=== PATIENT | female | born 1995 | race Asian ===

== ENCOUNTER 2018-07-12 23:30 | Emergency (ER) | payer OTHER ==
[2018-07-12 23:36] VITALS: BP 142/77
--- NOTE | 2018-07-13 00:13 | EDPHY ---
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 She was administering insulin to a patient, the patient moved after she had injected the insulin and the needle stuck her in her right pointer finger. There was bleeding. She quickly washed the area. At this time she feels fine. She reports her immunizations are up-to-date including tetanus and hepatitis B. She states the patient does not have any known infectious diseases but does have a history of incarceration. She reports the source patient will be able to be tested for infectious diseases. - Personal History LMP (Females 10-55): 22-28 Days Ago Current Tetanus Diphtheria and Acellular Pertussis (TDAP): Yes - Medical/Surgical History Hx Asthma: No Hx Chronic Respiratory Disease: No Hx Diabetes: No Hx Cardiac Disease: No Hx Renal Disease: No Hx Cirrhosis: No Hx Alcoholism: No Hx HIV/AIDS: No Hx Splenectomy or Spleen Trauma: No Other PMH: DENIES - Social History Smoking Status: Never smoked - Physical Exam Exam: General Appearance: Alert and no distress. Eyes: Pupils equal and round no injection. Respiratory: Chest is non tender, lungs are clear to auscultation. Cardiac: regular rate and rhythm Gastrointestinal: Abdomen is soft and non tender, no masses, bowel sounds normal. Musculoskeletal: Neck is supple and non tender. Extremities have full range of motion and are non tender. Skin: No active bleeding from what appears to be a puncture wound to her right pointer finger. Constitutional: Initial Vital Signs Temperature (C) 36.7 C 07/12/18 23:34 Heart Rate 88 07/12/18 23:34 Respiratory Rate 16 07/12/18 23:34 Blood Pressure 142/77 H 07/12/18 23:34 O2 Sat (%) 97 07/12/18 23:34 O2 Delivery Mode Room Air Allergies/Adverse Reactions: No Known Allergies Allergy (Unverified 07/12/18 23:34) Home Medications: Medication Instructions Recorded NK [No Known Home Meds] 07/12/18 Medical Decision Making ED Course/Re-evaluation: Patient seen under the supervision of my secondary supervising physician Dr. Jake Lanier. Patient presents to the emergency department after sustaining a needle stick at work. She has no complaints. Her immunizations are up-to- date. There is no report of Infectious Disease in the source patient, but source does appear to have risk factors including history of incarceration. According to the patient the source patient will be able to be tested for infectious diseases. Baseline blood studies on patient are obtained. I have offered her prophylactic medication for HIV, she has declined. She will insure source patient is tested and understands if she needs to start post exposure prophylactic medication this needs to be started within 72 hr. Patient voiced understanding and agreement with plan. Differential Diagnosis: Included but not limited to needlestick, needle stick with infectious disease transmission - Data Points Laboratory Results: Laboratory Results 07/13/18 00:28 07/13/18 00:28 07/13/18 07/13/18 07/13/18 00:28 00:28 00:28 WBC 9.11 10^3/uL 10^3/uL (3.80-9.50) RBC 5.20 10^6/uL 10^6/uL (4.18-5.33) Hgb 15.0 g/dL g/dL (12.6-16.3) Hct 44.5 % % (38.0-47.0) MCV 85.6 fL fL (81.5-99.8) MCH 28.8 pg pg (27.9-34.1) MCHC 33.7 g/dL g/dL (32.4-36.7) RDW 12.6 % % (11.5-15.2) Plt Count 239 10^3/uL 10^3/uL (150-400) MPV 10.7 fL fL (8.7-11.7) Neut % (Auto) 61.0 % % (39.3-74.2) Lymph % (Auto) 32.2 % % (15.0-45.0) [place] % (Auto) 5.7 % % (4.5-13.0) Eos % (Auto) 0.4 % L % (0.6-7.6) Baso % (Auto) 0.4 % % (0.3-1.7) Nucleat RBC Rel Count 0.0 % % (0.0-0.2) Absolute Neuts (auto) 5.55 10^3/uL 10^3/uL (1.70-6.50) Absolute Lymphs (auto) 2.93 10^3/uL 10^3/uL (1.00-3.00) Absolute Monos (auto) 0.52 10^3/uL 10^3/uL (0.30-0.80) Absolute Eos (auto) 0.04 10^3/uL 10^3/uL (0.03-0.40) Absolute Basos (auto) 0.04 10^3/uL 10^3/uL (0.02-0.10) Absolute Nucleated RBC 0.00 10^3/uL 10^3/uL (0-0.01) Immature Gran % 0.3 % % (0.0-1.1) Immature Gran # 0.03 10^3/uL 10^3/uL (0.00-0.10) Sodium 140 mEq/L mEq/L (135-145) Potassium 3.8 mEq/L mEq/L (3.5-5.2) Chloride 107 mEq/L mEq/L (97-110) Carbon Dioxide 20 mEq/l L mEq/l (22-31) Anion Gap 13 mEq/L mEq/L (6-14) BUN 10 mg/dL mg/dL (7-23) Creatinine 0.7 mg/dL mg/dL (0.6-1.0) Estimated GFR > 60 Glucose 79 mg/dL mg/dL (70-100) Calcium 9.4 mg/dL mg/dL (8.5-10.4) Total Bilirubin 0.3 mg/dL mg/dL (0.1-1.4) Conjugated Bilirubin 0.1 mg/dL mg/dL (0.0-0.5) Unconjugated Bilirubin 0.2 mg/dL mg/dL (0.0-1.1) AST 35 IU/L IU/L (14-46) ALT 36 IU/L IU/L (9-52) Alkaline Phosphatase 59 IU/L IU/L (38-126) Total Protein 7.7 g/dL g/dL (6.3-8.2) Albumin 4.6 g/dL g/dL (3.5-5.0) Beta HCG, Qual NEGATIVE Hep Bs Antibody Pending Hepatitis C Antibody Pending HIV 1&2 Antibody Pending Departure - Departure Disposition: Home, Routine, Self-Care Clinical Impression: Needle stick injury of finger Qualifiers: Encounter type: initial encounter Qualified Code(s): S61.239A - Puncture wound without foreign body of unspecified finger without damage to nail, initial encounter; W27.3XXA - Contact with needle (sewing), initial encounter; W27.3XXA - Contact with needle (sewing), initial encounter Condition: Good Instructions: Needle Stick Injuries (ED) Additional Instructions: Please follow-up with worker's compensation on Saturday for recheck without fail. Please let them know all baseline labs should be resulted by Saturday If you do decided that you want to start HIV prophylactic medication it MUST be started within 72 hours or sooner from the needlestick Please discuss with you facility if the source patient can be tested for infectious diseases and have this performed as quick as possible If you have any other concerns please return to the emergency department for recheck Referrals: NONE *PRIMARY CARE P,. [Primary Care Provider] - As per Instructions Kang Jenkins MD [Medical Doctor] - As per Instructions [facility] (ED,. [Edm Groups for Call Sched] - As per Instructions
[2018-07-13 00:39] LABS: PLATELET COUNT 239 10^3/uL (150-400)
[2018-07-14 02:22] LABS: HEPATITIS C ANTIBODY TOTAL NEGATIVE (NEGATIVE)
== END 2018-07-13 00:44 | disposition home or self-care (01) ==
DX: S61.230A Puncture wound without foreign body of right index finger without damage to nail, initial encounter (principal); W46.1XXA Contact with contaminated hypodermic needle, initial encounter; Y92.129 Unspecified place in nursing home as the place of occurrence of the external cause; Y99.0 Civilian activity done for income or pay
CPT/HCPCS: G0472